=== PATIENT | female | born 1955 | race Caucasian/White ===

== ENCOUNTER 2024-09-15 10:22 | Emergency (ER) | payer OTHER ==
[2024-09-15 11:03] LABS: Absolute Lymphocytes (CBC) 1.2 K/uL (0.7-4.9); Absolute Monocytes 1.4 K/uL (0.1-1.3); Absolute Neutrophil 12.5 K/uL (1.8-8.0); Basophils % 0.2 % (0-1.3); Eosinophils % 0.3 % (0-4.4); Hematocrit 38.3 % (36.0-45.0); Hemoglobin 12.7 g/dL (12.0-15.0); MCH 27.8 pg (27.0-35.0); MCHC 33.3 g/dL (32.0-36.0); MCV 83.5 fL (80-100); Monocytes % 9.1 % (3.3-12.3); Neutrophils % 82.4 % (41.7-73.7); Platelets 735 thou/uL (152-406); RBC Red Blood Cell Count 4.59 M/uL (3.86-4.86); Red Cell Distribution Width 13.8 % (12.1-15.2)
[2024-09-15 11:21] LABS: AST/SGOT 20 U/L (15-37); Albumin 2.3 g/dL (3.4-5.0); Albumin/Globulin Ratio 0.5 (1.1-1.8); Alkaline Phosphatase 90 U/L (45-117); Anion Gap 9.8 mEq/L (5.0-15.0); BUN Blood Urea Nitrogen 8 mg/dL (7-18); Bicarbonate 29 mEq/L (21-32); Bilirubin Total 0.3 mg/dL (0.2-1.0); Globulin 4.6 g/dL (2.3-3.5); Glomerular Filtration Rate 89 ml/min (=/>90); Glucose Level 117 mg/dL (74-106); Lipase 24 U/L (13-75); Potassium 3.8 mEq/L (3.5-5.1); Protein, Total 6.9 g/dL (6.4-8.2); Sodium Level 137 mEq/L (136-145)
[2024-09-15 11:36] LABS: ALT/SGPT < 14 U/L (13-56)
--- NOTE | 2024-09-15 11:37 | RAD REPORT ---
EXAMINATION: ONE VIEW CHEST XR CLINICAL INDICATION: SWELLING TECHNIQUE: Frontal chest projection is submitted. Examination is limited by patient positioning and t echnique. COMPARISON: 07/02/2010 FINDINGS: The lungs are well inflated and clear. Heart is mildly enlarged in size. Sternotomy wires. Large hia sergio hernia suspected. IMPRESSION: Large hiatal hernia.
--- NOTE | 2024-09-15 12:04 | RAD REPORT ---
EXAMINATION: CT ABDOMEN AND PELVIS WITH CONTRAST CLINICAL INDICATION: ABD PAIN TECHNIQUE: CT abdomen and pelvis was performed, after the administration of IV contrast, [facility]. Axial, sagittal and coronal reconstructions were obtained. One or more of the following dose reduction techniques were used: Automated exposure control, adjustment of the mA and k V according to patient size, and iterative reconstruction. Unless otherwise specified, incidental findings do not require dedicated imaging follow-up. COMPARISON: No prior exam. FINDINGS: LOWER CHEST: Moderate to large hiatal hernia with significant fluid in the hernia sac. LIVER: Mild fatty liver is present. No focal lesion or biliary dilatation is seen. Grossly unremark able gallbladder. SPLEEN: Normal size. No focal lesion. PANCREAS: No mass, ductal dilation, or zoie-pancreatic fluid. ADRENALS: Normal; no mass. KIDNEYS: Normal size and contour. No hydronephrosis. GASTROINTESTINAL TRACT: Moderate to significant ascites. No bowel obstruction or free intraperitoneal air. Mildly thickened small bowel loops seen in the left abdomen. Prominent diverticulosis of the colon without diverticulitis. APPENDIX: Normal appendix. LYMPH NODES: No lymphadenopathy. MUSCULOSKELETAL: Mild multilevel spinal degenerative changes. ADDITIONAL FINDINGS: Fluid is present in both inguinal canals. IMPRESSION: Diffuse fatty liver is seen. Moderate ascites. Moderate hiatal hernia with fluid present in the hernia sac. Mildly thickened small bowel loops in the left abdomen could be related to enteritis
--- NOTE | 2024-09-15 12:20 | ER ---
Nurse's Notes [facility] Name: Beatriz Michelle Age: 69 yrs Sex: Female : 1955 Arrival Date: 09/15/2024 Time: 10:22 Bed 13 Private MD: Diagnosis: Enteritis;Other ascites;Laceration without foreign body of left ring finger without damage to nail Presentation: 09/15 10:43 Chief complaint: Patient states: abd swelling x10 days with constipation x7 days. pt kc6 states she was at the ER in [facility] on Monday and d/c home with a diagnosis of ascites. pt also reports falling last PM with a ceramic mug in her hand and cutting her left 4th digit. Coronavirus screen: At this time, the client does not indicate any symptoms associated with coronavirus-19. Ebola Screen: No symptoms or risks identified at this time. Initial Sepsis Screen: Does the patient meet any 2 criteria? HR > 90 bpm. Does the patient have a suspected source of infection? No. Patient's initial sepsis screen is negative. Risk Assessment: Do you want to hurt yourself or someone else? Patient reports no desire to harm self or others. Onset of symptoms was September 15, 2024. 10:43 Method Of Arrival: Ambulatory [facility] 10:43 Acuity: ANTWON 2 kc6 Historical: - Allergies: 10:45 No Known Allergies; kc6 - PMHx: 10:45 Myocardial infarction; kc6 - PSHx: 10:45 Coronary artery bypass graft; kc6 - Immunization history:: Adult Immunizations up to date. - Infectious Disease History:: Denies. - Social history:: Smoking status: Patient denies any tobacco usage or history of. Patient/guardian denies using alcohol. Screenin:46 [facility] ED Fall Risk Assessment (Adult) History of falling in the last 3 months, kc6 including since admission Yes- single mechanical fall (1 pt) Confusion or Disorientation No (0 pts) Intoxicated or Sedated No (0 pts) Impaired Gait No (0 pts) Mobility Assist Device Used No (0 pt) Altered Elimination No (0 pt) Score/Fall Risk Level 0 - 2 = Low Risk Oriented to surroundings. Abuse screen: Denies threats or abuse. Denies injuries from another. Nutritional screening: No deficits noted. Tuberculosis screening: No symptoms or risk factors identified. Assessment: 10:56 General: Appears in no apparent distress. uncomfortable, well groomed, well developed, kc6 Behavior is calm, cooperative, appropriate for age. Pain: Complains of pain in abdomen Pain does not radiate. Quality of pain is described as crampy, dull. Neuro: Level of Consciousness is awake, alert, obeys commands, Oriented to person, place, time, situation, Appropriate for age. Cardiovascular: Capillary refill < 3 seconds. Respiratory: Airway is patent Trachea midline Respiratory effort is even, unlabored, Respiratory pattern is regular, symmetrical. GI: Abdomen is round distended, noted to have ascites, Last BM was September 08, 2024. Bowel sounds present X 4 quads. Abd is rigid X 4 quads. Reports lower abdominal pain, upper abdominal pain, constipation, cramping, Patient currently denies nausea, vomiting. : No signs and/or symptoms were reported regarding the genitourinary system. Urine is clear. EENT: No signs and/or symptoms were reported regarding the EENT system. Derm: No signs and/or symptoms reported regarding the dermatologic system. Skin is intact, is fragile, is thin, with poor turgor Skin is pink, warm \T\ dry. Musculoskeletal: No signs and/or symptoms reported regarding the musculoskeletal system. Circulation, motion, and sensation intact. Range of motion: intact in all extremities. 11:56 Reassessment: Patient appears in no apparent distress at this time. No changes from kc6 previously documented assessment. Patient and/or family updated on plan of care and expected duration. Pain level reassessed. Patient is alert, oriented x 3, equal unlabored respirations, skin warm/dry/pink. 12:56 Reassessment: Patient appears in no apparent distress at this time. No changes from kc6 previously documented assessment. Patient and/or family updated on plan of care and expected duration. Pain level reassessed. Patient is alert, oriented x 3, equal unlabored respirations, skin warm/dry/pink. Vital Signs: 10:43 BP 111 / 58; Pulse 97; Resp 19 S; Pulse Ox 99% on R/A; Weight 66.22 kg (M); Height 5 kc6 ft. 8 in. (R); Pain 0/10; 10:43 Body Mass Index 22.20 (66.22 kg, 172.72 cm) kc6 10:43 Pain Scale: Adult kc6 ED Course: 10:26 Patient arrived in ED. mr 10:29 Anyi Buckley F[facility]C is [facility]. kb 10:29 Alli Griffith MD is Attending Physician. kb 10:31 Perri Cardona, SHIRA is Primary Nurse. kc6 10:45 Triage completed. kc6 10:45 Arm band placed on. kc6 10:46 Patient has correct armband on for positive identification. Placed in gown. Bed in low kc6 position. Call light in reach. Side rails up X 1. Adult w/ patient. Pulse ox on. NIBP on. Door closed. Noise minimized. Lights dimmed. Pillow given. Verbal reassurance given. 10:46 Patient maintains SpO2 saturation greater than 95% on room air. kc6 10:55 Initial lab(s) drawn, by me, sent to lab. Inserted saline lock: 20 gauge in right kc6 forearm, using aseptic technique. Blood collected. Flushed with 10 mL NS. 11:34 Chest Single View XRAY In Process Unspecified. EDMS 11:56 CT Abd/Pelvis - IV Contrast Only In Process Unspecified. EDMS 12:56 Urine collected: clean catch specimen, clear. kc6 13:19 No provider procedures requiring assistance completed. IV discontinued, intact, kc6 bleeding controlled, No redness/swelling at site. Pressure dressing applied. Administered Medications: 13:04 Drug: Boostrix Tdap IM 0.5 ml IM once; as a single dose Route: IM; Site: right deltoid; kc6 Medication: 13:20 VIS not applicable for this client. kc6 Outcome: 12:20 Discharge ordered by . kb 13:20 Discharged to home ambulatory, with family, kc6 13:20 Condition: good 13:20 Discharge instructions given to patient, family, Instructed on discharge instructions, follow up and referral plans. medication usage, Demonstrated understanding of instructions, follow-up care, medications, Prescriptions given X 1, 13:20 Patient left the ED. kc6 Signatures: Dispatcher [employer] EDMS Anyi Buckley FNP-C [employer] K[employer]TER-Ckb Beba Kapoor, Reg Reg mr Perri Cardona, RN RN kc6 Corrections: (The following items were deleted from the chart) 10:45 10:45 Social history: Smoking status: Patient denies any tobacco usage or history of. kc6 kc6 10:46 10:43 Chief complaint: Patient states: abd swelling x10 days with constipation x7 days. kc6 pt states she was at the ER in [facility] on Monday and d/c home with a diagnosis of ascites kc6
--- NOTE | 2024-09-15 12:20 | EDPHYS ---
Physician Documentation [facility] Name: Beatriz Michelle Age: 69 yrs Sex: Female : 1955 Arrival Date: 09/15/2024 Time: 10:22 Bed 13 Private MD: ED Physician Alli Griffith HPI: 09/15 10:58 This 69 yrs old Female presents to ER via Ambulatory with complaints of Abdominal kb Swelling. 10:58 Pt is a 69 year old female who presents for abdominal swelling that started last week. kb States she initially thought it was constipation, saw her dr and was told to take mirelax. Went to the ER in [place] 2 days ago and was diagnosed with ascites. States she was told to follow up to have it drained, but the swelling has increased and she has been uncomfortable so she came in for second opinion. Denies fever, nausea, vomiting. Reports constipation. Also reports laceration to left hand after trip and fall yesterday. States she had a ceramic cup in her hand that cut her.. Historical: - Allergies: 10:45 No Known Allergies; kc6 - PMHx: 10:45 Myocardial infarction; kc6 - PSHx: 10:45 Coronary artery bypass graft; kc6 - Immunization history:: Adult Immunizations up to date. - Infectious Disease History:: Denies. - Social history:: Smoking status: Patient denies any tobacco usage or history of. Patient/guardian denies using alcohol. ROS: 10:58 Constitutional: As per HPI kb Exam: 10:58 Constitutional: This is a well developed, well nourished patient who is awake, alert, kb and in no acute distress. Head/Face: Normocephalic, atraumatic. ENT: Moist Mucous membranes Cardiovascular: Regular rate Respiratory: Respirations even and unlabored. No increased work of breathing. Talking in full sentences Skin: Warm, dry with normal turgor. Normal color. MS/ Extremity: Pulses equal, no cyanosis. Neurovascular intact. Full, normal range of motion. Neuro: Awake and alert, GCS 15, oriented to person, place, time, and situation. 10:58 Abdomen/GI: Inspection: distension, that is moderate, in the abdomen diffusely, Bowel sounds: normal, Palpation: abdomen is soft and non-tender, 12:32 Skin: injury, laceration(s), the wound is approximately 2 cm(s), of the dorsal aspect kb of middle phalanx of left ring finger, that can be described as contaminated, no foreign body, linear, without bleeding, Vital Signs: 10:43 BP 111 / 58; Pulse 97; Resp 19 S; Pulse Ox 99% on R/A; Weight 66.22 kg (M); Height 5 kc6 ft. 8 in. (R); Pain 0/10; 10:43 Body Mass Index 22.20 (66.22 kg, 172.72 cm) kc6 10:43 Pain Scale: Adult kc6 MDM: 10:29 Medical Screening Exam initiated kb 10:58 Data reviewed: vital signs, nurses notes. kb 12:19 Differential diagnosis: non-specific abd pain, pancreatitis, liver disease, kb constipation, bowel obstruction. Management of patient was discussed with the following: Dr Griffith. Counseling: I had a detailed discussion with the patient and/or guardian regarding the historical points, exam findings, and any diagnostic results supporting the discharge/admit diagnosis, lab results, radiology results, the need for outpatient follow up, a family practitioner, a community health program coordinator, to return to the emergency department if symptoms worsen or persist or if there are any questions or concerns that arise at home. 12:33 ED course: Sutures considered to repair laceration, but slight swelling and erythema to kb area with contaminated wound that has been open for greater than 12 hours. Pt placed on antibiotics and educated on wound care . 09/15 10:43 Order name: CBC with Diff; Complete Time: 11:06 kb 09/15 10:43 Order name: CMP; Complete Time: 11:40 kb 09/15 10:43 Order name: Lipase; Complete Time: 11:40 kb 09/15 12:32 Order name: UA Rfx Hipolito Cult if indicated kb 09/15 10:43 Order name: CT Abd/Pelvis - IV Contrast Only; Complete Time: 12:07 kb 09/15 10:43 Order name: Chest Single View XRAY; Complete Time: 11:40 kb 09/15 10:43 Order name: IV Saline Lock; Complete Time: 10:55 kb 09/15 10:43 Order name: Labs collected and sent; Complete Time: 10:55 kb 09/15 12:11 Order name: Wound Care: clean and dress; Complete Time: 13:04 kb Administered Medications: 13:04 Drug: Boostrix Tdap IM 0.5 ml IM once; as a single dose Route: IM; Site: right deltoid; kc6 Disposition: 15:20 Co-signature as Attending Physician, Alli Griffith MD I reviewed the patient's care rn provided by the Advanced Practice Provider and agree with the diagnosis and treatment plan. Disposition Summary: 09/15/24 12:20 Discharge Ordered Notes: Location: Home kb Condition: Stable kb Diagnosis - Enteritis kb - Other ascites kb - Laceration without foreign body of left ring finger without damage to nail kb Followup: kb - With: Emergency Department - When: As needed - Reason: Worsening of condition Followup: kb - With: Private Physician - When: 2 - 3 days - Reason: Recheck today's complaints, Continuance of care, Re-evaluation by your physician Discharge Instructions: - Discharge Summary Sheet kb - Ascites kb Forms: - Medication Reconciliation Form kb - Antibiotic Education kb - Prescription Opioid Use kb - Patient Portal Instructions kb - Leadership Thank You Letter kb Prescriptions: - Augmentin 875-125 mg Oral Tablet - take 1 tablet ORAL route every 12 hours for 10 days; 20 tablet; Refills: 0, kb Product Selection Permitted Signatures: Dispatcher [employer] EDMS Anyi Buckley, SHIP FASTENER-C SHIP FASTENER-Ckb Alli Griffith MD MD rn Campbell, Kaitlyn, RN RN kc6 Corrections: (The following items were deleted from the chart) 10:44 10:44 CBC+H.LAB.BRZ ordered. EDMS EDMS 10:44 10:44 COMPREHENSIVE METABOLIC PANEL+C.LAB.BRZ ordered. EDMS EDMS 10:44 10:44 LIPASE+C.LAB.BRZ ordered. EDMS EDMS 10:44 10:44 Abdomen Pelvis W Con+CT.RAD.BRZ ordered. EDMS EDMS 10:44 10:44 Chest Single View+RAD.RAD.BRZ ordered. EDMS EDMS 10:45 10:45 Social history: Smoking status: Patient denies any tobacco usage or history of. kc6 kc6 12:33 10:58 Pt is a 69 year old female who presents for abdominal swelling that started last kb week. States she initially thought it was constipation, saw her dr and was told to take mirelax. Went to the ER in [place] 2 days ago and was diagnosed with ascites. States she was told to follow up to have it drained, but the swelling has increased and she has been uncomfortable so she came in for second opinion. Denies fever, nausea, vomiting. Reports constipation. kb
[2024-09-15] MEDS ORDERED: TDAP (DIPHTH,PERTUSS(ACELL),TET VAC) 0.5 ML VIAL IMVAC ONE (12:59)
[2024-09-15 13:29] VITALS: BP 111/58; O2SAT 99
[2024-09-15 13:34] LABS: Calcium Oxalate Crystals- Ur Few /HPF (None Seen); Specific Gravity > 1.030 (1.005-1.030); Transitional Epithelial <5 /HPF (None Seen); Urine Bacteria 20-50 /HPF (<20); Urine Bilirubin 1+ (Negative); Urine Blood 1+ (Negative); Urine Clarity Extremely Turbid (Clear); Urine Color Yellow (Yellow); Urine Culture Reflex Order REFLEXED; Urine Glucose NEGATIVE (Negative); Urine Ketones 1+ (Negative); Urine Microscopic Reflex YN ORDER UMIC; Urine Mucus 4+ /HPF (None Seen); Urine Nitrite NEGATIVE (Negative); Urine Protein 1+ (Negative); Urine Urobilinogen Normal (Normal); Urine pH 6.5 (5.0-7.0)
== END 2024-09-15 13:20 | disposition home or self-care (01) ==
LOC: ER 10:22
DX: R18.8 Other ascites (principal); K52.9 Noninfective gastroenteritis and colitis, unspecified; S61.215A Laceration without foreign body of left ring finger without damage to nail, initial encounter; Z23 Encounter for immunization; I25.2 Old myocardial infarction; Z95.1 Presence of aortocoronary bypass graft
CPT/HCPCS: 87088; 85025; 81001; 87086; 36415; 87077; 87186; 83690; 80053; 74177; 71045; 90715; 96372; 99284; Q9967